=== PATIENT | female | born 1940 | race Hispanic/Latino ===

== ENCOUNTER 2023-12-29 08:32 | Emergency (ER) | payer OTHER, MEDICARE ==
[~2023-12-29] VITALS: Ht 157.5 cm; Wt 68.0 kg
[2023-12-29] MEDS: BACLOFEN 10 MG TABLET PO SCH (09:26)
[2023-12-29] MEDS: KETOROLAC 15MG/ML VIAL (15MG/ML) IM ONE (09:26)
[2023-12-29] MEDS ORDERED: KETO10TA2 PO (12:11)
[2023-12-29] MEDS ORDERED: CYCL10TA16 PO (12:11)
[2023-12-29 12:22] VITALS: BP 148/76; PULSE 77; RESP 16; O2SAT 97
== END 2023-12-29 12:30 | disposition home or self-care (01) ==
LOC: EDH 08:32
DX: S29.012A Strain of muscle and tendon of back wall of thorax, initial encounter (principal); Z79.899 Other long term (current) drug therapy; Z98.890 Other specified postprocedural states; X58.XXXA Exposure to other specified factors, initial encounter; Y93.89 Activity, other specified; Y92.89 Other specified places as the place of occurrence of the external cause; Y99.8 Other external cause status
CPT/HCPCS: 99284; 72040; 72072; 96372; J1885

== ENCOUNTER 2025-01-10 08:10 | Emergency (ER) | payer OTHER, MEDICARE ==
[~2025-01-10] VITALS: Ht 157.5 cm; Wt 56.2 kg
[~2025-01-10 08:10] MED LIST: CYCL10TA16 PO; KETO10TA2 PO
--- NOTE | 2025-01-10 10:00 | HMCIMG ---
EXAM: CR left Rib, 5 View. CLINICAL HISTORY: fall COMPARISON: None provided. FINDINGS: LUNGS: The visualized lungs appear essentially clear. Mild left basilar atelectasis. Incidental calcified granulomas at the left lung base. PLEURAL SPACES: No evidence of pneumothorax. No pleural effusion. BONES: Mildly displaced fractures at the anterior aspects of the left 6th and 7th ribs. Presumed chronic fracture deformity of L2. Spondylosis of the visualized lumbar spine. IMPRESSION: 1. Mildly displaced fractures of the anterior left 6th and 7th ribs. 2. No pneumothorax or pleural effusion. /Exira
[2025-01-10] MEDS ORDERED: METH-662 PO (10:15)
[2025-01-10] MEDS ORDERED: ACET-66 PO (10:15)
--- NOTE | 2025-01-10 10:15 | ERN ---
General Chief Complaint: Rib Pain Stated Complaint: LEFT RIBCAGE PAIN Time Seen by MD: 08:14 Source: patient History of Present Illness Initial Comments Patient is a an 84-year-old female coming in complaining of left-sided rib pain. Per patient this has been ongoing for a couple of days after she fell down hit herself in the rib area. She is able to breathe but with some discomfort. Allergies: Coded Allergies: No Known Drug Allergies (Unverified Allergy, Unknown, 08/06/16) Home Meds Active Scripts Cyclobenzaprine HCl (Flexeril) 10 Mg Tab, 10 MG PO DAILYDINNER for muscle sstiff ness for 5 Days, #5 TAB 0 Refills Prov:GOOD ARITA 12/29/23 Ketorolac Tromethamine (Ketorolac Tromethamine) 10 Mg Tablet, 10 MG PO BID for 5 Days, #10 TAB Prov:GOOD ARITA 12/29/23 Past Medical History Past Medical History: No Pertinent History Past Surgical History: Other Surgical History Other: EYE SURGERY ROS Dictation CONSTITUTIONAL: No chills, no fever, no weakness, no diaphoresis, no malaise. HEAD/FACE: No signs of trauma. EENT: No eye pain, no blurred vision, no tearing, no double vision, no ear pain, no ear discharge, no nose pain, no nasal congestion, no throat pain, no throat swelling, no mouth pain. RESPIRATORY: No cough, no orthopnea, no SOB, no stridor, no wheezing. CARDIOVASCULAR: chest pain, no edema, no palpitations, no syncope. GASTROINTESTINAL/ABDOMINAL: No abdominal pain, no constipation, no diarrhea, no nausea, no vomiting. GENITOURINARY: No abnormal discharge, no dysuria, no frequent urination, no hematuria. No complaints of pain in the genitals. MUSCULOSKELETAL: No back pain, no gout, no joint pain, no joint swelling, no muscle pain, no muscle stiffness, no neck pain. INTEGUMENTARY: No change in color, no change in hair/nails, no dryness, no lesion, no lumps, no rash. NEUROLOGICAL/PSYCH: No anxiety, not depressed, no emotional problem, no headache, no numbness, no pre-existing deficit, no history of seizures, no tremors, no weakness. HEMATOLOGIC/LYMPHATIC: Not anemic, no history of blood clots, no apparent bleeding, no bruising, glands not swollen. All Systems Negative, Except as Noted. Physical Exam Physical Exam Dictation VITAL SIGNS: Reviewed. GENERAL APPEARANCE: Alert, oriented x3, no acute distress, obese. HEAD AND FACE: Non-traumatic. EYES: PERRL, pink conjunctivas, eyelid no trauma, anterior chamber clear. EARS: Pinnas intact and no signs of trauma or erythema. Ear canals clear and no discharge. TMs no erythema. NOSE: No discharge, no bleeding. OROPHARYNX: Mouth normal, teeth no caries, tongue pink. Pharynx clear, no erythema. Tonsils no exudates, no abscesses noted. Mucous membrane moist. NECK: Supple, non-tender, no thyromegaly, no masses, no JVD, no bruits. BREAST: Deferred. CHEST: Left chest tenderness, no crepitus, no paradoxical movement, no retractions. LUNGS: Clear, well-ventilated, symmetric, no rales, no wheezing, no rhonchi, no stridor, good breath sounds bilaterally. HEART: Regular rate, regular rhythm, no murmur, no gallops. VASCULAR: No peripheral edema. ABDOMEN: Soft, positive bowel sounds, nondistended, no guarding, nontender, no rebound, no masses no hepatomegaly, no splenomegaly, no Nguyen's sign, no hernias. RECTAL: Deferred. GENITAL: Deferred. NEUROLOGICAL: Normal speech, gross motor function intact, gross sensory function intact. MUSCULOSKELETAL: Neck nontender, full range of motion, back nontender, full range of motion. EXTREMITIES: Nontender, full range of motion. SKIN: Color pink, dry, no turgor, no rash, no lacerations, no abrasions, no contusions. LYMPHATICS: Deferred. Results Laboratory and Microbiology Labs Reviewed?: Yes EKG/XRAY/US/CT/MRI X-RAY Comment [facility] [address] [place] [id number] IMAGING REPORT Signed PATIENT: CHAR SAUCEDA MR#: [id number] : 1940 SEX: F AGE: 84 LOCATION: [facility] ORDER [id number] STATUS: REG REPORT#: [id number] SERVICE REASON: fall ORDERING PHYSICIAN: UMER CASAS MD PROCEDURE: RIB LT W C - RIBS UNI LT W PA CHEST 3+VWS EXAM: CR left Rib, 5 View. CLINICAL HISTORY: fall COMPARISON: None provided. FINDINGS: LUNGS: The visualized lungs appear essentially clear. Mild left basilar atelectasis. Incidental calcified granulomas at the left lung base. PLEURAL SPACES: No evidence of pneumothorax. No pleural effusion. BONES: Mildly displaced fractures at the anterior aspects of the left 6th and 7th ribs. Presumed chronic fracture deformity of L2. Spondylosis of the visualized lumbar spine. IMPRESSION: 1. Mildly displaced fractures of the anterior left 6th and 7th ribs. 2. No pneumothorax or pleural effusion. /[place] DICTATED BY: MONA EATON Jr., MD DATE: 01/10/25 1100 ELECTRONICALLY SIGNED BY: MONA EATON Jr., MD DATE: 01/10/25 1100 MDM MDM: Differential diagnosis: Rib pain, fractured rib, costochondritis, Rationale: Tests considered and ordered secondary to shared decision making include: Previous outside records reviewed: Old ER visits. Risk of complication and/or morbidity or mortality of patient management: None Medications-Per medication reconciliation Need for hospitalization: Patient does not meet criteria for hospitalization. Patient is a an 84-year-old female coming in complaining of left-sided chest pain. X-ray disclose 6th and 7th rib fracture. Medication will be provided for symptomatic relief. I did advised her appropriate follow up with PCP in 1-2 days for ongoing evaluation and management. ED Course Orders Procedure Category Date Status Time 12 Lead Ekg Tracing- EKG 01/10/25 Logged Technical 08:18 Ribs Uni Lt W Pa RAD 01/10/25 Resulted Chest 3+Vws 08:18 Vital Signs Date Time Temp Pulse Resp B/P (MAP) Pulse Ox O2 Delivery O2 Flow Rate FiO2 01/10/25 08:13 99.0 69 16 135/87 99 Room Air 0 DX & DISP Disposition: Discharge Departure Impression: Primary Impression: Left rib fracture Condition: Stable Scripts Acetaminophen (Tylenol) 500 Mg Tab 1 TAB PO Q6HPRN PRN for pain or fever for 5 Days, #30 TAB 0 Refills Prov: UMER CASAS MD 01/10/25 Methocarbamol (Robaxin) 750 Mg Tab 1 TAB PO BID for 5 Days, #10 TAB 0 Refills Prov: UMER CASAS MD 01/10/25 Additional Instructions: FOLLOW-UP WITH PRIMARY CARE PROVIDER IN 1 TO 2 DAYS. TAKE MEDICATIONS DIRECTED HERE IN THE EMERGENCY ROOM. OKAY TO CONTINUE HOME MEDICATIONS UNLESS OTHERWISE DISCUSSED DURING YOUR VISIT IN THE EMERGENCY ROOM TODAY. RETURN TO YOUR NEAREST EMERGENCY ROOM IF SYMPTOMS WORSEN OR IF THERE IS NO IMPROVEMENT. CALL 911 IF YOU NEED IMMEDIATE ASSISTANCE. TAKE TYLENOL [id number] NE EDED AND IF NO CONTRAINDICATIONS ARE PRESENT. INCREASE ORAL HYDRATION. A WOUND CULTURE OR URINE CULTURE WAS ORDERED HERE IN THE EMERGENCY ROOM DEPARTMENT PLEASE FOLLOW-UP WITH PRIMARY CARE PROVIDER AND ADVISE THEM TO GET REPORTS FROM OUR FACILITY. IF YOU HAD ANY JERMAINE WRAP/SPLINTS THAT WERE APPLIED HERE, PLEASE DO NOT REMOVE THEM UNTIL YOU SEE YOUR PRIMARY CARE OR SPECIALTY. Referrals: Referrals: ANDRIA GAMINO MD (PCP) Time of Disposition: 10:14 UMER CASAS MD Jan 10, 2025 10:15
--- NOTE | 2025-01-10 10:17 | EKG ---
[facility] Test Date: 2025-01-10 Test Time: 10:13:31 Pat Name: CHAR SAUCEDA Department: ED Room: Gender: F Virtual Assistant: [id number] : 1940 Requested By: UMER CASAS Order Number: [id number] Reading MD: Mekhi Hooper Measurements Intervals [place] Rate: 64 P: -3 IL: 172 QRS: -34 QRSD: 147 T: 104 QT: 456 QTc: 470 Interpretive Statements Sinus rhythm Left bundle branch block Compared to ECG 11/20/2022 10:26:38 Intraventricular conduction delay no longer present Electronically Signed On 01-10-2025 23:42:56 CDT by Mekhi Hooper Please click the below link to view image of tracing.
[2025-01-10 11:52] VITALS: BP 148/55; PULSE 64; RESP 16; TEMP 98.8; O2SAT 95
== END 2025-01-10 11:55 | disposition home or self-care (01) ==
LOC: EDH 08:10
DX: S22.32XA Fracture of one rib, left side, initial encounter for closed fracture (principal); Z79.899 Other long term (current) drug therapy; W18.39XA Other fall on same level, initial encounter; Y93.89 Activity, other specified; Y92.89 Other specified places as the place of occurrence of the external cause; Y99.8 Other external cause status
CPT/HCPCS: 71101; 93005; 99283